=== PATIENT | male | born 1975 | race Caucasian/White ===

== ENCOUNTER 2017-09-12 14:39 | Emergency (ER) | payer SELFPAY ==
[~2017-09-12] VITALS: Ht 167.6 cm; Wt 65.0 kg
[2017-09-12 14:41] VITALS: BP 130/98
== END 2017-09-12 20:45 | disposition left against medical advice (07) ==
LOC: ER 14:40
DX: F41.0 Panic disorder [episodic paroxysmal anxiety] (principal); F15.10 Other stimulant abuse, uncomplicated; Z53.21 Procedure and treatment not carried out due to patient leaving prior to being seen by health care provider